=== PATIENT | female | born 1950 | race Caucasian/White ===

== ENCOUNTER → 2018-04-28 | Outpatient (CLI) | payer MEDICARE, SELFPAY ==
[~2018-04-28] MED LIST: ASPI325 PO; CEPH500 PO; DIAZ5 PO; FURO100EL; FURO20 PO; GABA300 PO; GLYMET1.25 PO; IBUP400 PO; IBUPROFEN PO; MECL25 PO; METF500 PO; MINO100 PO; Micro-K10 MEQ; NAPR250 PO; NAPR550 PO; OXYACE5T PO; RXNAPNA550 PO; SULTRIDS PO; Ultram50 MG PO
[2018-04-28 18:44] LABS: Percent Saturation 32.3 % (15.0-50.0)
== END ==
LOC: LAB SHORT 14:00 → LAB 14:00
PROVIDERS: Internal Medicine Hematology & Oncology
DX: D50.0 Iron deficiency anemia secondary to blood loss (chronic) (principal)
CPT/HCPCS: 82728; 83540; 83550

== ENCOUNTER 2025-06-12 11:09 | Day surgery (SDC) | payer MEDICARE ==
[~2025-06-12] VITALS: Ht 165.1 cm; Wt 83.0 kg
[~2025-06-12 11:09] MED LIST changes: +Balanced Salt Epinephrine Irrigation Solution 500 mL IR SCH; +Moxifloxacin HCL 0.5 MG/0.1 ML 0.4MLSYR RIGHTEYE SCH; +NS 500 ML IV ONE; +PHENYLEPHRINE\\TROPICAMIDE\\TETRACAINE OPHTHALMIC DILATING SOLN RIGHTEYE PRN; +Povidone-Iodine 450 DROP/30 ML Solution ONE; +Povidone-Iodine 450 DROP/30 ML Solution RIGHTEYE SCH; +Tetracaine HCl/Pf 0.5% Opth Soln 4 ml ONE
[2025-06-12] MEDS ORDERED: NS 500 ML IV ONE ×2 (12:29→13:42)
[2025-06-12] MEDS ORDERED: ASPI81CH PO (12:33)
[2025-06-12] MEDS ORDERED: ATOR20 PO (12:36)
[2025-06-12] MEDS ORDERED: LOSA25 PO (12:37)
[2025-06-12] MEDS ORDERED: SITA25T2 PO (12:37)
[2025-06-12] MEDS ORDERED: GLIM2 PO (12:37)
[2025-06-12] MEDS ORDERED: ESCI10 PO (12:38)
[2025-06-12] MEDS ORDERED: Midazolam HCl 1MG / ML 2ML Vial ONE ×2 (13:35→13:46)
[2025-06-12] MEDS ORDERED: FentaNYL Citrate 50 MCG/ML 2 ML Injection ONE (13:52)
--- NOTE | 2025-06-12 14:07 | NUR ---
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
[2025-06-12 14:08] VITALS: BP 176/79
== END 2025-06-12 14:28 | disposition home or self-care (01) ==
LOC: ORSCSDS 11:09
PROVIDERS: Student in an Organized Health Care Education/Training Program
PROC: 08RJ3JZ Replacement of Right Lens with Synthetic Substitute, Percutaneous Approach (ICD-10-PCS; principal; 2025-06-12 12:30)
DX: E11.36 Type 2 diabetes mellitus with diabetic cataract (principal); H25.813 Combined forms of age-related cataract, bilateral; H21.81 Floppy iris syndrome; E78.5 Hyperlipidemia, unspecified; I10 Essential (primary) hypertension; H53.2 Diplopia; Z79.4 Long term (current) use of insulin; Z79.82 Long term (current) use of aspirin; Z79.84 Long term (current) use of oral hypoglycemic drugs; Z79.899 Other long term (current) drug therapy
CPT/HCPCS: 82947; J2250; J3010; J7040; V2632